=== PATIENT | female | born 1990 | race Caucasian/White ===

== ENCOUNTER 2021-05-30 13:57 | Outpatient (REF) | payer MEDICAID, SELFPAY ==
--- NOTE | ~2021-05-30 | XR_ITS ---
EXAMINATION: XR LUMBOSACRAL SPINE CLINICAL INFORMATION: Back pain with left-sided sciatica. COMPARISON: Lumbar spine radiographs dated 07/07/2017. TECHNIQUE: 3 views of the lumbosacral spine. FINDINGS: The vertebral bodies and posterior elements are normal. The disc spaces are preserved and the vertebral alignment is normal. The paraspinal soft tissues are normal. XR/XR lumbar spine 2-3V IMPRESSION: Unremarkable examination.
== END 2021-05-30 13:58 | disposition home or self-care (01) ==
LOC: HO.XRAY 13:57
PROVIDERS: Visit Provider Emergency Medicine
DX: M54.42 Lumbago with sciatica, left side (principal)
CPT/HCPCS: 72100

== ENCOUNTER 2023-03-03 12:45 | Outpatient (REF) | payer MEDICAID, SELFPAY ==
--- NOTE | ~2023-03-03 | US_ITS ---
EXAMINATION: MM DIAGNOSTIC DIGITAL BREAST TOMOSYNTHESIS, BILATERAL US DIAGNOSTIC ULTRASOUND BREAST, BILATERAL CLINICAL INFORMATION: 32-year-old with intermittent waxing and waning lateral breast pain. No palpable mass or discharge. Patient history of probable benign nodule left breast on outside ultrasound performed in [facility], currently unavailable. The lifetime risk of breast cancer based on the Tyrer-Cuzick Model is 8%. COMPARISON: None. TECHNIQUE: Digital breast tomosynthesis is performed in both the craniocaudal and mediolateral oblique views along with computer-aided detection (CAD). Synthesized 2D images are generated from the tomosynthesis. Ultrasound bilateral breasts is targeted to the areas of clinical concern outer breasts using grayscale imaging and color Doppler without and with harmonics. FINDINGS: There are scattered areas of fibroglandular density (ACR BI-RADS breast composition Category b). Breast tissue composition borders on heterogeneously dense. There is a small nodular asymmetry lower mid left breast on MLO view corresponding to the ultrasound finding below. Otherwise, there is no significant mass and no architectural abnormality or abnormal calcifications. The axilla are unremarkable. The skin contours are smooth. No skin thickening or coarsening of the Scott's ligaments. Ultrasound left breast demonstrates a macrolobulated circumscribed solid hypoechoic mass 8:00 position 3-4 cm from nipple measuring approximately 1.5 x 0.7 x 1.0 cm. No increased or decreased through transmission of sound. There is no other cystic or solid mass. No architectural abnormality. No skin thickening or edema tracking in soft tissue planes. Ultrasound right breast demonstrates a oval hypoechoic solid mass 6:00 position 3 cm from nipple measuring approximately 0.7 x 0.4 x 0.5 cm. There is no other cystic or solid mass. No architectural abnormality. No skin thickening or edema tracking in soft tissue planes. Results are discussed with the patient at time of visit. There are no inflammatory changes on mammography or ultrasound. The bilateral ultrasound nodules are likely benign fibroadenomas. Recommend follow-up surveillance. US/US breast RT limited IMPRESSION: -No mammographic evidence of malignancy or inflammatory changes. -Probable benign fibroadenoma left breast 1.5 cm, 8:00 position, 3-4 cm from nipple. -Probable benign fibroadenoma right breast 0.7 cm, 6:00 position, 3 cm from nipple. ASSESSMENT: BI-RADS 3: Probably Benign RECOMMENDATION: Bilateral targeted breast ultrasound in 6 months. This patient's information was entered into a reminder system with a target due date for their next mammogram.
--- NOTE | ~2023-03-03 | US_ITS ---
EXAMINATION: MM DIAGNOSTIC DIGITAL BREAST TOMOSYNTHESIS, BILATERAL US DIAGNOSTIC ULTRASOUND BREAST, BILATERAL CLINICAL INFORMATION: 32-year-old with intermittent waxing and waning lateral breast pain. No palpable mass or discharge. Patient history of probable benign nodule left breast on outside ultrasound performed in [facility], currently unavailable. The lifetime risk of breast cancer based on the Tyrer-Cuzick Model is 8%. COMPARISON: None. TECHNIQUE: Digital breast tomosynthesis is performed in both the craniocaudal and mediolateral oblique views along with computer-aided detection (CAD). Synthesized 2D images are generated from the tomosynthesis. Ultrasound bilateral breasts is targeted to the areas of clinical concern outer breasts using grayscale imaging and color Doppler without and with harmonics. FINDINGS: There are scattered areas of fibroglandular density (ACR BI-RADS breast composition Category b). Breast tissue composition borders on heterogeneously dense. There is a small nodular asymmetry lower mid left breast on MLO view corresponding to the ultrasound finding below. Otherwise, there is no significant mass and no architectural abnormality or abnormal calcifications. The axilla are unremarkable. The skin contours are smooth. No skin thickening or coarsening of the Scott's ligaments. Ultrasound left breast demonstrates a macrolobulated circumscribed solid hypoechoic mass 8:00 position 3-4 cm from nipple measuring approximately 1.5 x 0.7 x 1.0 cm. No increased or decreased through transmission of sound. There is no other cystic or solid mass. No architectural abnormality. No skin thickening or edema tracking in soft tissue planes. Ultrasound right breast demonstrates a oval hypoechoic solid mass 6:00 position 3 cm from nipple measuring approximately 0.7 x 0.4 x 0.5 cm. There is no other cystic or solid mass. No architectural abnormality. No skin thickening or edema tracking in soft tissue planes. Results are discussed with the patient at time of visit. There are no inflammatory changes on mammography or ultrasound. The bilateral ultrasound nodules are likely benign fibroadenomas. Recommend follow-up surveillance. US/US breast LT limited IMPRESSION: -No mammographic evidence of malignancy or inflammatory changes. -Probable benign fibroadenoma left breast 1.5 cm, 8:00 position, 3-4 cm from nipple. -Probable benign fibroadenoma right breast 0.7 cm, 6:00 position, 3 cm from nipple. ASSESSMENT: BI-RADS 3: Probably Benign RECOMMENDATION: Bilateral targeted breast ultrasound in 6 months. This patient's information was entered into a reminder system with a target due date for their next mammogram.
== END 2023-03-03 12:46 | disposition home or self-care (01) ==
LOC: HO.MAMMO 12:45
PROVIDERS: PCP Registered Nurse; Visit Provider Registered Nurse
DX: N64.4 Mastodynia (principal)
CPT/HCPCS: 76642; 77062; 77066

== ENCOUNTER 2023-09-01 12:52 | Outpatient (REF) | payer MEDICAID, SELFPAY ==
--- NOTE | ~2023-09-01 | US_ITS ---
EXAMINATION: US DIAGNOSTIC ULTRASOUND BREAST, BILATERAL CLINICAL INFORMATION: 32-year-old with intermittent waxing and waning lateral breast pain. No palpable mass or discharge. Patient history of probable benign nodule left breast on outside ultrasound performed in [facility], currently unavailable. COMPARISON: 10/03/2022. TECHNIQUE: Ultrasound bilateral breasts is targeted to the areas of clinical concern outer breasts using grayscale imaging and color Doppler without and with harmonics. FINDINGS: Ultrasound LEFT breast demonstrates a macrolobulated circumscribed solid hypoechoic mass 8:00 position 3-4 cm from nipple measuring approximately 1.9 x 0.9 x 0.9 cm (previously 1.5 x 0.7 x 1.0 cm, with differences felt to represent technique differences) It is stable in morphology and size. There appears to be subtle increased through transmission although masses. These are most likely fibroadenomas. No cystic findings. No edema within the soft tissue planes. No abnormal masslike shadowing. Ultrasound RIGHT breast demonstrates a oval hypoechoic solid mass 6:00 position 3 cm from nipple measuring a stable 0.7 x 0.4 x 0.5 cm. It is stable in morphology and size. There is no other cystic or solid mass. No edema within the soft tissue planes.. No abnormal masslike shadowing. The bilateral ultrasound nodules are likely benign fibroadenomas. Recommend follow-up surveillance. US/US breast BI limited mamm only IMPRESSION: -No significant sonographic changes since prior examination. -Probable benign fibroadenoma left breast 1.5 cm, 8:00 position, 3-4 cm from nipple. -Probable benign fibroadenoma right breast 0.7 cm, 6:00 position, 3 cm from nipple. ASSESSMENT: BI-RADS 3: Probably Benign RECOMMENDATION: Bilateral follow-up targeted breast ultrasound in 6 months. This patient's information was entered into a reminder system with a target due date for their next mammogram.
== END 2023-09-01 12:53 | disposition home or self-care (01) ==
LOC: HO.MAMMO 12:52
PROVIDERS: PCP Registered Nurse; Visit Provider Registered Nurse
DX: N64.4 Mastodynia (principal); N63.24 Unspecified lump in the left breast, lower inner quadrant; N63.15 Unspecified lump in the right breast, overlapping quadrants
CPT/HCPCS: 76642

== ENCOUNTER → 2023-09-01 13:00 | Outpatient (BNV) | payer MEDICAID, SELFPAY | PROVIDERS: PCP Registered Nurse; Visit Provider Radiology Diagnostic Radiology | DX: N64.4 Mastodynia (principal) | CPT/HCPCS: 76642 ==

== ENCOUNTER 2023-09-03 09:15 | Outpatient (REF) | payer MEDICAID, SELFPAY ==
[2023-09-03 12:22] LABS: HCG Quantitative 2052 mIU/mL
== END 2023-09-03 09:16 | disposition home or self-care (01) ==
LOC: HO.HHCL 09:15
PROVIDERS: Visit Provider Registered Nurse
DX: N92.6 Irregular menstruation, unspecified (principal)
CPT/HCPCS: 36415; 84702

== ENCOUNTER 2023-09-22 14:29 | Outpatient (REF) | payer MEDICAID, SELFPAY ==
--- NOTE | ~2023-09-22 | US_ITS ---
EXAMINATION: ULTRASOUND EXTREMITY NONVASCULAR CLINICAL INFORMATION: Mass right thigh. Multiple palpable areas in the anterior right thigh. COMPARISON: None available. TECHNIQUE: Multiple nodules are palpated in the anterior right thigh. The 4 largest were measured. FINDINGS: 4 well-defined avascular superficial slightly echogenic masses were demonstrated. This included: anterior mid thigh 2.8 x 0.6 x 2.5 cm Anterior mid thigh 1.4 x 0.5 x 1.3 cm Anterior lateral upper thigh 2.1 x 0.8 x 2.5 cm Anterior mid 1.6 x 0.5 x 1.3 cm These are similar in appearance and most likely represent lipomas. US/US extremity nonvascular IMPRESSION: 4 well-defined avascular slightly echogenic masses in the anterior mid thigh, as described above. These are similar in appearance and most likely represent lipomas.
== END 2023-09-22 14:30 | disposition home or self-care (01) ==
LOC: HO.US 14:29
PROVIDERS: PCP Registered Nurse; Visit Provider Registered Nurse
DX: R22.41 Localized swelling, mass and lump, right lower limb (principal)
CPT/HCPCS: 76882

== ENCOUNTER 2023-10-20 10:18 | Outpatient (AMB) | payer MEDICAID, SELFPAY ==
--- NOTE | 2023-10-20 10:39 | A.OFFVIS_ITS ---
Intake Vital Signs 3 10/20/23 10:45 Height 5 ft 4 in Weight 143 lb 11.862 oz BMI 24.7 BP 110/70 Blood Pressure Location Lt brachial Position Sitting Intake Visit Reasons: Mass of skin Rt Lower Extremity Intake Note: Patient is seen in office for evaluation and treatment of a mass on the right lower extremity. Pt c/o: has 3 lumps on the right thigh, and 2 on the left, onset for yrs, feels a pinch that radiates up the thigh, denies redness, discharge, swelling US:09/22/23 Communications Strategist Required: No Accompanied by: Self / Same As Patient Allergies No Known Allergies [No Known Allergies*] Allergy (Unverified 10/20/23 10:41) Medication List - Last Reconciled 10/20/23 by Rafal Arndt MD No Known Home Meds Patient : Yes (12 wks) HPI HPI Comments 2 History of Present Illness0 Details 32-year-old female patient presenting wi th several soft tissue masses located in her leg. She is currently 12 weeks with her 3rd child. She noted the lumps several years ago but feels that they are increasing in size. She has some discomfort associated with the lumps especially the anterior right thigh. She was evaluated with ultrasound which revealed a soft tissue density suggestive of lipomas. She is requested excision of the 3 lesions located in her right thigh. [facility] Family History Maternal Grandmother Leukemia Social History Alcohol intake: never Patient Tobacco Use Status: Never used Tobacco Review of Systems Const All systems reviewed & are unremarkable except as noted in HPI and below Denies chills, Denies fever(s), Denies headache(s), Denies poor appetite and Denies weakness ENT Denies headache(s) Card Denies chest pain, Denies irregular heart rhythm, Denies palpitations and Denies dyspnea Resp Denies cough, Denies excessive phlegm production and Denies dyspnea GI Denies abdominal pain, Denies bloating, Denies change in bowel habits, Denies constipation, Denies heartburn, Denies diarrhea, Denies nausea and Denies vomiting Denies urinary frequency Musc Denies back pain, Denies muscle weakness and Denies numbness Skin/Breast Denies changing lesions and Denies unusual bruising Neuro Denies headache(s), Denies numbness, Denies paresthesias and Denies weakness Psych Denies anxiety and Denies depression Endo Denies palpitations Sabas/Lymph Denies lymphadenopathy Physical Exam Const General: cooperative and no acute distress Nutritional Appearance: well nourished Orientation/consciousness: patient oriented x3 Limitations: no limitations HEENT Head: Yes normocephalic and Yes atraumatic Ears: hearing grossly normal bilaterally Resp Effort & Inspection: normal respiratory effort, no audible wheezes, no cough and no respiratory distress Cardio Jugular venous distension: no JVD GI Inspection: Yes normal to inspection Skin Other: Warm, dry, no rash Neuro General: patient oriented x3 Extrem General: Yes no clubbing, cyanosis or edema Upper/lower leg/hip images: 2 1. Right anterior thigh, 2 cm 2. Right medial thigh, 2 cm 3. Right lateral thigh, 1.5 cm 4. Left lateral thigh/groin, 1 cm Assessment & Plan Assessment & Plan (1) Lipoma of right lower extremity: Code(s): D17.23 - Benign lipomatous neoplasm of skin and subcutaneous tissue of right leg Plan 32-year-old female patient currently 12 weeks presenting with enlarging lipomas which are causing discomfort. She is requested excision of the 3 lesions located on her right thigh. She understands that there will be a scar following the procedure. After discussion of the procedure, risks, and alternatives, she consents to excision of the right thigh lipomas. This will be performed as a minor surgery under local anesthesia. Coding Level of Care Code New Pt Level 4 (14725) Diagnoses Lipoma of right lower extremity D17.23
[2023-10-20 10:45] VITALS: BP 110/70; BMI 24.7
== END 2023-10-20 11:04 | disposition home or self-care (01) ==
PROVIDERS: PCP Registered Nurse; Referring Provider Registered Nurse; Visit Provider Surgery
DX: D17.23 Benign lipomatous neoplasm of skin and subcutaneous tissue of right leg (principal)
CPT/HCPCS: 99204

== ENCOUNTER → 2023-10-20 10:18 | Outpatient (BNVA) | payer MEDICAID, SELFPAY | PROVIDERS: PCP Registered Nurse; Referring Provider Registered Nurse; Visit Provider Surgery | DX: D17.23 Benign lipomatous neoplasm of skin and subcutaneous tissue of right leg (principal) | CPT/HCPCS: 99202 ==

== ENCOUNTER 2023-11-19 11:00 | Outpatient (REF) | payer MEDICAID, SELFPAY ==
[2023-11-19 12:41] VITALS: BP 104/66; PULSE 77; RESP 18; TEMP 36.3; O2SAT 100; BMI 24.4
--- NOTE | 2023-11-19 15:48 | W.PM.OPN ---
Operative Note Operative Note Date of Service: 11/19/23 Narrative: Preoperative diagnosis: Lipoma x3 right anterior thigh Postoperative diagnosis: Same Procedure: Excision of lipoma x3 right anterior thigh Surgeon: Rafal Arndt MD [employer] Worker: None Anesthesia: Lidocaine 1% with epinephrine Indications for procedure: 32-year-old female presenting with 3 lipomas of the anterior right thigh which are causing discomfort. All 3 are located in the anterior thigh and measure 2 cm, 2 cm, and 1.5 cm diameter. Operative findings: 3 anterior right thigh lipomas as noted above and as described in the H and P. Specimen: Lipoma x3 Estimated blood loss: Less than 2 mL Complications: None Procedure details: Patient was brought to the OR and placed in a supine position. The 3 lipomas were marked by the patient in the anterior right thigh including 1 in the upper right thigh a 2nd slightly lower in the midline and a 3rd located slightly medial to the initial 2. After assuring informed consent the skin was prepped with Betadine and draped in a sterile fashion. Local anesthesia was infiltrated over each of the 3 lipomas. Beginning in the superior lesion incision was made in a longitudinal fashion of approximately 1.5 cm. This was carried out through subcutaneous tissue down to the lipoma. Blunt dissection was then used to dissect the lipoma which easily was removed. Attention was then directed to the lower, larger lesion measuring approximately 2 cm in diameter. Incision was made over the lesion and carried out through subcutaneous tissue up to the lipoma. Blunt dissection was then used to remove this lipoma. Attention was then directed to the 3rd lesion which was slightly medial to the other 2 lesions. Again an incision was made directly over the lesion and blunt dissection used to remove this lipoma as well. Pressure was held to maintain hemostasis in all lesions. Skin was then closed in all incisions using interrupted 4-0 subcuticular Polysorb sutures. Steri-Strips, 2 x 2 gauze and Tegaderm were then applied. The patient tolerated the procedure well. She was discharged to home in stable condition.
== END 2023-11-19 11:01 | disposition home or self-care (01) ==
LOC: HO.SSS 11:00
PROVIDERS: PCP Registered Nurse; Visit Provider Surgery
PROC: (CPT 27327; principal; 2023-11-19 11:30)
DX: D17.23 Benign lipomatous neoplasm of skin and subcutaneous tissue of right leg (principal)
CPT/HCPCS: 27327 ×3; 88304

== ENCOUNTER → 2023-11-19 11:00 | Outpatient (BNV) | payer MEDICAID, SELFPAY | PROVIDERS: PCP Registered Nurse; Visit Provider Surgery | DX: D17.23 Benign lipomatous neoplasm of skin and subcutaneous tissue of right leg (principal) | CPT/HCPCS: 27327 ==

== ENCOUNTER 2023-12-01 12:46 | Outpatient (AMB) | payer MEDICAID, SELFPAY ==
[2023-12-01 13:19] VITALS: BP 102/61; PULSE 84; BMI 24.2
--- NOTE | 2023-12-01 13:19 | A.OFFVIS_ITS ---
Intake Vital Signs 12/01/23 13:19 Height 5 ft 4 in Weight 141 lb BMI 24.2 BP 102/61 Blood Pressure Location Lt brachial Position Sitting Pulse 84 Intake Visit Reasons: S/P excision lipoma Rt leg x3 Intake Note: Patient is seen in office for post op assessment post excision of lipoma x3 right anterior thigh. Pt c/o: denies any concerns, healing as expected Op:11/19/23 Office Machine Service Supervisor Required: No Accompanied by: Self / Same As Patient Allergies No Known Allergies [No Known Allergies*] Allergy (Unverified 12/01/23 13:21) HPI HPI Comments History of Present Illness Details Patient returns 1 week following excision of multiple lipomas of the leg. She tolerated the procedure well and feels the wounds are healing nicely. Pathology confirmed angio lipomas. [facility] Surgical History S/P excision of lipoma (11/19/23) Family History Maternal Grandmother Leukemia Social History Alcohol intake: never Patient Tobacco Use Status: Never used Tobacco Physical Exam Vital Signs: Last Vital Signs Pulse 84 12/01/23 13:19 BP 102/61 12/01/23 13:19 BMI result Body Mass Index 24.2 Const General: no acute distress Extrem Other: Wounds are clean, dry, and intact without redness or discharge. Assessment & Plan Assessment & Plan (1) Lipoma of right lower extremity: Code(s): D17.23 - Benign lipomatous neoplasm of skin and subcutaneous tissue of right leg Plan Patient returns 1 week following excision of lipomas of the right leg. She tolerated the procedure well and her wounds are healing nicely. She should follow up as needed. Coding Level of Care Code Global (51858) Diagnoses Lipoma of right lower extremity D17.23
== END 2023-12-01 13:24 | disposition home or self-care (01) ==
PROVIDERS: PCP Registered Nurse; Visit Provider Surgery
DX: D17.23 Benign lipomatous neoplasm of skin and subcutaneous tissue of right leg (principal)
CPT/HCPCS: 99024

== ENCOUNTER → 2023-12-01 12:46 | Outpatient (BNVA) | payer MEDICAID, SELFPAY | PROVIDERS: PCP Registered Nurse; Visit Provider Surgery | DX: D17.23 Benign lipomatous neoplasm of skin and subcutaneous tissue of right leg (principal) | CPT/HCPCS: 99212 ==

== ENCOUNTER 2024-05-24 10:55 | Outpatient (REF) | payer MEDICAID, SELFPAY ==
--- NOTE | ~2024-05-24 | US_ITS ---
EXAMINATION: US DIAGNOSTIC ULTRASOUND BREAST, BILATERAL CLINICAL INFORMATION: 6 month follow-up for probably benign bilateral breast masses; left breast 8:00, 3 cm from the nipple, right breast 6:00 axis, 3 cm from the nipple. Patient is currently breast-feeding and is one month , complicating the examination and appearance of the breast tissue. COMPARISON: Bilateral breast ultrasound 09/01/2023, 03/03/2023 (BI-RADS 3). Bilateral diagnostic mammogram 03/03/2023. TECHNIQUE: Ultrasound of bilateral breasts is performed with real-time king scale imaging and color Doppler. Attention was given to the right breast 6:00 axis, and left breast 8:00 axis, to include the areas of concern. FINDINGS: RIGHT BREAST: The previously seen small mass in the 6:00 axis, 3 cm from the nipple cannot be visualized on today's exam, most likely due to engorgement of the breast tissue from breast-feeding and extensive tissue shadowing. This should be considered essentially nondiagnostic. Six-month follow-up recommended for improved visualization. LEFT BREAST: Slightly smaller macrolobulated circumscribed solid hypoechoic mass 8:00 position 3-4 cm from nipple measuring approximately 1.8 x 0.9 x 0.6 cm (previously 1.9 x 0.9 x 0.9 cm, when measured similarly). There appears to be subtle increased through transmission through the mass this remains most likely a fibroadenoma. No cystic findings. No edema within the soft tissue planes. Diffuse soft tissue shadowing from breast-feeding mildly complicates evaluation. US/US breast BI limited mamm only IMPRESSION: 1. Slightly smaller LEFT breast mass at the 8 o'clock position with unchanged characteristics highly suggestive of a fibroadenoma. This is almost certainly benign. Six-month follow-up recommended to establish a one-year stability. 2. Previously seen small mass in the RIGHT breast at 6:00 is not well-seen on today's examination, most likely due to engorgement of the breast tissue from breast-feeding and extensive tissue shadowing. Recommend six-month follow-up in an attempt to visualize this probably benign finding. ASSESSMENT: BI-RADS 3: Probably Benign RECOMMENDATION: Diagnostic bilateral ultrasonography in 6 months. This patient's information was entered into a reminder system with a target due date for their next mammogram. Electronically signed by: Bennett Ku MD 05/24/2024 12:53 PM EDT
== END 2024-05-24 10:56 | disposition home or self-care (01) ==
LOC: HO.MAMMO 10:55
PROVIDERS: PCP Registered Nurse; Visit Provider Registered Nurse
DX: N63.24 Unspecified lump in the left breast, lower inner quadrant (principal); N63.15 Unspecified lump in the right breast, overlapping quadrants
CPT/HCPCS: 76642

== ENCOUNTER → 2024-05-24 11:00 | Outpatient (BNV) | payer MEDICAID, SELFPAY | PROVIDERS: PCP Registered Nurse; Visit Provider Radiology Diagnostic Radiology | DX: D24.1 Benign neoplasm of right breast (principal); D24.2 Benign neoplasm of left breast | CPT/HCPCS: 76641 ==

== ENCOUNTER 2024-12-13 10:46 | Outpatient (REF) | payer MEDICAID, SELFPAY ==
--- NOTE | ~2024-12-13 | US_ITS ---
EXAMINATION: US DIAGNOSTIC ULTRASOUND BREAST, BILATERAL CLINICAL INFORMATION: Follow-up for bilateral masses versus complicated cysts likely at 6:00 left at 8:00. Patient is breast-feeding.. COMPARISON: Comparison is made with relevant prior imaging. TECHNIQUE: Ultrasound of the breast is performed with real-time king scale imaging and color Doppler. FINDINGS: Targeted color Doppler ultrasound scanning in the right breast from 40 8:00 demonstrates normal fibronodular breast tissue. The previously seen masses no longer seen. Targeted color Doppler ultrasound scanning in the left breast at 8:00 demonstrates a hypoechoic area which could recommend present a normal patch of fibroglandular breast tissue versus the previously seen solid mass versus complicated cyst. There is no internal vascular flow. Follow-up is recommended for confirmation. Results are discussed with the patient at time of visit. US/US breast BI limited mamm only IMPRESSION: Right: Negative. Left: Patch of normal fibronodular breast tissue versus previously seen area of solid mass versus complicated cyst which is more ill-defined today. There is no internal vascular flow. Recommend follow-up in 12 months for further confirmation. ASSESSMENT: BI-RADS 3: Probably Benign RECOMMENDATION: Diagnostic mammography at time of next annual exam, due in 12 months. This patient's information was entered into a reminder system with a target due date for their next mammogram. Electronically signed by: Ida Craig DO 12/13/2024 02:11 PM EDT
--- OUTSIDE RECORDS SUMMARY | 2024-12-13 12:53 | XMS_ITS | Encounter Summary ---
Author Organization [employer] Address [address] [place] [address] Care Team Providers Care Registered Occupational Therapist Name Role Phone Lisa Perez Primary Care Provider [phone] Encounter Details Date Type Department Care Team (Latest Contact Info) Description 07/22/2021 Abstract [facility] CONVERSIONS Dental, Provider, DDS Social History Tobacco Use Types Packs/Day Years Used Date Smoking Tobacco: Never Assessed Comments Unknown Sex and Gender Information Value Date Recorded Sex Assigned at Female 07/14/2022 10:32 AM EDT Legal Sex Female 10:32 AM EDT Gender Identity Female 07/14/2022 10:32 AM EDT Sexual Orientation Straight 07/14/2022 10 :32 AM EDT documented as of this encounter Plan of Treatment Not on file documented as of this encounter Visit Diagnoses Not on filedocumented in this encounter Care Teams Registered Occupational Therapist Relationship Specialty Start Date End Date Lisa Perez FNP [address] [place] [id number] PCP - General Family Medicine 05/13/22 documented as of this encounter
--- OUTSIDE RECORDS SUMMARY | 2024-12-13 12:53 | XMS_ITS | Encounter Summary ---
Author Organization [employer] Address [address] [place] [address] Care Team Providers Care Heart Surgeon Name Role Phone Lisa Perez Primary Care Provider [phone] Encounter Details Date Type Department Care Team (Latest Contact Info) Description 07/05/2019 Abstract [facility] CONVERSIONS Dental, Provider, DDS Social History Tobacco [...] on filedocumented in this encounter Care Teams Heart Surgeon Relationship Specialty Start Date End Date Lisa Perez FNP [address] [place] [id number] PCP - General Family Medicine 05/13/22 documented as of this encounter
--- OUTSIDE RECORDS SUMMARY | 2024-12-13 12:53 | XMS_ITS | Encounter Summary ---
Author Organization [employer] Address [address] [place] [address] Care Team Providers Care Engineering Aid Name Role Phone Chris Lisa ORQUIDEA Primary Care Provider [phone] Encounter Details Date Type Department Care Team ([facility] st Contact Info) Description 2024 Orders Only [facility] [address] [place] [address] ProviderDenia MD Social History Tobacco Use Types Packs/Day Years Used Date Smoking Tobacco: Former Cigarettes Passive Smoke Exposure: Current Smokeless Tobacco: Never Alcohol Use Standard Drinks/Week Comments Not Currently 2 (1 standard drink = 0.6 oz pur e alcohol) Depression Answer Date Recorded Patient Health Questionnaire-9 Score 1 06/06/2024 Patient Health Questionnaire-9 Score 1 06/06/2024 Last PHQ-9: Questionnaire Data Not on file 0 06/06/2024 Housing Stability Answer Date Recorded What is your housing situation today? I have misael fowler 06/06/[address] you li ve. Do you have problems with any of the following? None of the above 06/06/2024 Food Insecurity Answer Date Recorded Within the past 12 months, y ou worried that your food would run out before you got money to buy more: Never True 06/06/2024 Within the past 12 months,th e food you bought just didn't last and you didn't have enough money to get more: Never True Transportation Answer Date Recorded In the past 12 months, has l ack of transportation kept you from medical appts, meetings, work or from getting things needed for daily living? No 06/06/2024 Utilities Answer Date Recorded In the past 12 months, has t he electric, gas, oil or water company threatened to shut off services in your home? No 06/06/2024 Depression Answer Date Recorded Patient Health Questionnaire-2 Score 0 06/06/2024 Internet Access Answer Date Recorded Internet Access Q1 Yes 06/06/2024 Internet Access Q2 Not on file 06/06/2024 Comments Unknown Sex and Gender Information Value Date Recorded Sex Assigned at Female 07/14/2022 10:32 AM EDT Legal Sex Female 10:32 AM EDT Gender Identity Female 07/14/2022 10:32 AM EDT Sexual Orientation Straight 07/14/2022 10 :32 AM EDT documented as of this encounter Plan of Treatment Not on file documented as of this encounter Procedures Procedure Name Priority Date/Time Associated Diagnosis Comments HM PAP/HPV Routine 06/10/2024 8:24 AM EDT documented in this encounter Results * HM PAP/HPV (06/10/2024 8:24 AM EDT) us Historical Provider HEALTH MAINTENANCE Final Result documented in this encounter Visit Diagnoses Not on filedocumented in this encounter Additional Health Concerns Assessment Noted Time PHQ-9 Depression Total Score: 1 06/06/20 24 11:46 AM EDT documented as of this encounter Care Teams Engineering Aid Relationship Specialty Start Date End Date Lisa Perez FNP [address] [place] [address] PCP - General Family Medicine 05/13/22 documented as of this encounter
--- OUTSIDE RECORDS SUMMARY | 2024-12-13 12:53 | XMS_ITS | Clinical Summary ---
Author Organization [employer] Address [address] [place] [address] Care Team Providers Care Vp Construction Name Role Phone LadiLisa burger ORQUIDEA Primary Care Provider [phone] Allergies Active Allergy Reactions Criticality Noted Date Comments Lactose Other Low 04/24/2024 Other Reaction(s): Cramps Medications butalbital-acet aminophen-caffe ine 50-325-40 MG tablet Take 1 tablet by mouth every 4 (four) hours if needed for migraine. 4 Active Ferrous Sulfate (IRON PO) Take 1 tablet by mouth in the morning. 4 Active Ekkjksvc-Sel-Lh -FA ( 1 + IRON PO) Take by mouth. Acti ve Lidoderm 5 % patchIndication s:Acute bilateral low back pain with bilateral sciatica APPLY 1 PATCH TOPICALLY TO SKIN, LEAVE ON FOR 12 HOURS AND OFF FOR 12 HOURS DIRECTED 30 patch 1 4 Active Active Problems Problem Noted Date Diagnosed Date Healthcare maintenance 06/06/2024 Overview (06/06/2024): Pap: 10/09/23 ASCUS, HPV Pos. Colpo benign Oct 2023. Mammo: diagnostic US 05/24/24 BIRADS 3. Rec 6 month f/up. Assessment & Plan (06/06/2024 8:50 PM EDT): Doing well , good support from and family. PHQ9 score 1. Negative screen. Declined flu vaccine Follow up in 6-12 months for routine Physical Exam, sooner as needed ASCUS with positive high risk HPV cervical 10/16 Overview (06/06/2024): Pap 10/09/23 (during ) - ASCUS, HPV positive 11/12/23 benign appearing colpo Plan: repeat pap (following with [facility]) Migraines 10/06/2023 Overview (11/09/2023): Takes tylenol. Reports light sensitivity. MCDERMOTT increasingly bothersome (lasting multiple days), no improvement with Tylenol. Rx for Fioricet given through OBGYN. Lumbago with sciatica, left side 02/20/2023 Assessment & Plan (10/23/2024 8:12 PM EST): Pt w chronic lumbalgia with left sciatica. Cont with APAP and non-pharm measures as needed Letter of accomodation completed for return to work transition after maternity leave Assessment & Plan (11/09/2023 4:52 PM EST): Pt w chronic lumbalgia with left sciatica, current flare during . Cont with APAP and non-pharm measures as needed Letter of accomodation completed for work Assessment & Plan (02/20/2023 9:10 PM EDT): Pt w chronic lumbalgia with left sciatica Acute on chronic Reports improved from yesterday ,no acute alarming symptoms Noted 4/5 decrease strength in left leg -unsure if from acute pain ? -advised to continue lidoderm patch -tylenol prn x mild pain and NSAIDS x mod pain -has at home -rest at home -does not have to go back to work x next 3 days -pt has apt scheduled w PCP next week ---advised to f back pain then -referred to PT today -if ongoing back pain and weakness despite PT and meds x pain will need to consider MRI of lower back -pt states weakness in leg is chronic Resolved Problems Problem Noted Date Diagnosed Date Resolved Date Acute bilateral low back carlos eduardo n with bilateral sciatica 12/29/2023 06/06/2024 Assessment & Plan (12/29/2023 4:41 PM EDT): Apply heat on affected area Lidocaine patches prescribed today Acetaminophen PRN Work letter provided If symptoms persist or worse go to emergency room patient educated about red flags Dental caries on smooth surf chauncey limited to enamel 11/30/2023 06/06/2024 Dental plaque 06/16/2023 06/06/2024 Tipped teeth 06/16/2023 06/06/2024 Dental caries 06/16/2023 06/06/2024 Encounters Date Type Department Care Team Description 2024 Orders Only [facility] [address] [place] [address] Provider, MD Denia 10/21/2024 11:15 AM EST Office Visit [facility] [address] [place] [address] Lisa Perez FNP Chronic left-sided low back pain with left-sided sciatica (Primary Dx); state; Healthcare maintenance 10/21/2024 Travel 10/10/2024 Telephone [facility] [address] [place] [address] Lisa Perez FNP Return to Work Form from Last 3 Months Immunizations Name Administration Dates Next Due Tdap 03/14/2024,01/27/2022 Family History Medical History Relation Name Comments Leukemia Maternal Grandmother Hypertension Mother Nani Ovarian cancer Mother's Sister Heart disease Sister Yael Relation Name Status Comments Maternal Grandmother Mother Nani Mother's Sister Sister Yael Social History Tobacco Use Types Packs/Day Years Used Date Smoking Tobacco: Former Cigarettes Passive Smoke Exposure: Current Smokeless Tobacco: Never Tobacco Cessation:Counseling Given: Not Answered Alcohol Use Standard Drinks/Week Comments Not Currently [...] Orientation Straight 07/14/2022 10 :32 AM EDT Last Filed Vital Signs Vital Sign Reading Time Taken Comments Blood Pressure 106/71 10/21/2024 11:26 AM EST Pulse 74 10/21/2024 11:26 AM EST Temperature 36.1 ??C (97 ??F) 10/21/2024 11:26 AM EST Respiratory Rate 18 10/21/2024 11:26 AM EST Oxygen Saturation 98% 10/21/2024 11:26 AM EST Inhaled Oxygen Concentration - - Weight 58.1 kg (128 lb 2 oz) 10/21/2024 11:26 AM EST Height 164.5 cm (5' 4.75 ) 10/21/2024 11:[address] Body Mass Index 21.49 10/21/2024 11:26 AM EST Plan of Treatment Health Maintenance Due Date Last Done Comments Alcohol/Substance Use Screening 2000 Family Planning (PISQ) 12/09/2003 Hepatitis B Vaccines (1 of 3 - 19+ 3-dose series) 12/09/2007 Dental Oral Exam 12/17/2023 06/16/2023, 04/2021, 05/27/2017 Dental Prophylaxis 12/17/2023 06/16/2023, 1 09/21/2020, 02/03/2018, Additional history exists Dental X-Ray: Bitewings 06/17/2024 06/16/20 23, 07/22/2021, 05/27/2017 Diagnostic Breast Imaging 11/21/20242023, 09/01/2023, 03/03/2023, Additional history exists Mammogram 11/21/2024 05/24/2024, 08/14, 03/03/2023, Additional history exists Influenza Vaccine (#1) 2025 Postp oned from 05/15/2024 (Patient Refused) Depression Screening 06/06/2025 06/06/2024, 06/06/20 24 SDOH Screening 06/06/2025 06/06/2024 Tobacco Screening 06/06/2025 06/06/2024 COVID-19 Vaccine ( season) 2025 08/25/2021, 01/08/2021, 12/18/2020 Postponed from 05/15/2024 (Patient Refused) Dental X-Ray: Full Mouth 06/17/2026 023, 09/24/2017, 05/27/2017 Cervical Cancer Screening 06/10/2027 HPV/Cotest 06/10/2027 10/09/2023 Pap Smear 06/10/2027 06/10/2024, 10/09/2023 DTaP/Tdap/Td Vaccines (3 - Td or Tdap) 03/14/2034 03/14/2024, 01/27/2022 Zoster Vaccines (1 of 2) 2038 RSV Patients and Patients Aged 60 years or older (1 - 1-dose 75+ series) 12/09/2063 HIV Screening Completed 01/16/2022 Hepatitis C Screening Completed 01/16/2022 HIB Vaccines Aged Out No longer eligi ble based on patient's age to complete this topic HPV Vaccines Aged Out No longer eligi ble based on patient's age to complete this topic Hepatitis A Vaccines Aged Out No long er eligible based on patient's age to complete this topic IPV Vaccines Aged Out No longer eligi ble based on patient's age to complete this topic Meningococcal Vaccine Aged Out No candy faraz eligible based on patient's age to complete this topic Pneumococcal Vaccine: Pediatrics (0 to 5 Years) and At-Risk Patients (6 to 49) Years) Aged Out No longer eligible based on patient's age to complete this topic RSV under 20 months Aged Out No longe r eligible based on patient's age to complete this topic Rotavirus Vaccines Aged Out No longer eligible based on patient's age to complete this topic Procedures Procedure Name Priority Date/Time Associated Diagnosis Comments HM PAP/HPV Routine 06/10/2024 8:24 AM EDT BI US BREAST LIMITED BILATERAL Routine 05/24/2024 11:00 AM EDT HM PAP/HPV Routine 10/09/2023 PROPHYLAXIS - ADULT Routine 06/16/2023 8 :00 AM EDT Dental plaque Dental caries INTRAORAL - COMPLETE SERIES OF RADIOGRAPHIC IMAGES Routine 06/16/2023 8:00 AM EDT Dental plaque Tipped teeth Dental caries PERIODIC ORAL EVALUATION - ESTABLISHED PATIENT Routine 06/16/2023 8:00 AM EDT ZZZ HISTORICAL HEPATITIS C AB W/REFL TO HCV RNA, QN, PCR Routine 01/16/2022 9:46 AM EDT HIV 1/2 ANTIGEN/ANTIBODY, FOURTH GENERATION W/RFL Routine 01/16/2022 9:46 AM EDT from Last 3 Months or Most Recently Relevant to Health Maintenance Results * HM PAP/HPV (06/10/2024 8:24 AM EDT) Only the most recent of2 resultswithin the time period is included. us Historical Provider MD HEALTH MAINTENANCE Final Result * BI US Breast Limited Bilateral (05/24/2024 11:00 AM EDT) Anatomical Region Laterality Modality Breast Bilateral Ultrasound 05/24/2024 11:0 0 AM EDT Narrative 05/24/2024 12:56 PM EDT ? [facility] ? [address] ?[place] [address] ? Ultrasound Report ? Signed ? Patient: Arroyo Cuaresma,Malorie ?MR#: M ?? [id number] ? : 1990 ?Acct:[id number] ? Age/Sex: 33 / F ?ADM Date: 05/24/24 ? Loc: HO.MAMMO ? Attending Dr: Lisa HEARD ? Ordering Physician: Lisa Perez ?? Date of Service: 05/24/24 ?? Procedure(s): US breast BI limited mamm only ?? Accession Number(s): [id number] ? cc: Lisa Perez ? EXAMINATION: ?? US DIAGNOSTIC ULTRASOUND BREAST, BILATERAL ? CLINICAL INFORMATION: ? 6 month follow-up for probably benign bilateral breast masses; left ?? breast 8:00, 3 cm from the nipple, right breast 6:00 axis, 3 cm from ?? the nipple. Patient is currently breast-feeding and is one month ?? , complicating the examination and appearance of the breast ?? tissue. ? COMPARISON: ?? Bilateral breast ultrasound 09/01/2023, 03/03/2023 (BI-RADS 3). ?? Bilateral diagnostic mammogram 03/03/2023. ? TECHNIQUE: ?? Ultrasound of bilateral breasts is performed with real-time king scale ?? imaging and color Doppler. Attention was given to the right breast 6:00 ?? axis, and left breast 8:00 axis, to include the areas of concern. ? FINDINGS: ? RIGHT BREAST: ?? The previously seen small mass in the 6:00 axis, 3 cm from the nipple ?? cannot be visualized on today's exam, most likely due to engorgement of ?? the breast tissue from breast-feeding and extensive tissue shadowing. ?? This should be considered essentially nondiagnostic. Six-month ?? follow-up recommended for improved visualization. ? LEFT BREAST: ?? Slightly smaller macrolobulated circumscribed solid hypoechoic mass ?? 8:00 position 3-4 cm from nipple measuring approximately 1.8 x 0.9 x ?? 0.6 cm (previously 1.9 x 0.9 x 0.9 cm, when measured similarly). There ?? appears to be subtle increased through transmission through the mass ?? this remains most likely a fibroadenoma. No cystic findings. No edema ?? within the soft tissue planes. Diffuse soft tissue shadowing from ?? breast-feeding mildly complicates evaluation. ? US/US breast BI limited mamm only ?? IMPRESSION: ? 1. Slightly smaller LEFT breast mass at the 8 o'clock position with ?? unchanged characteristics highly suggestive of a fibroadenoma. This is ?? almost certainly benign. Six-month follow-up recommended to establish a ?? one-year stability. ? 2. Previously seen small mass in the RIGHT breast at 6:00 is not ?? well-seen on today's examination, most likely due to engorgement of the ?? breast tissue from breast-feeding and extensive tissue shadowing. ?? Recommend six-month follow-up in an attempt to visualize this probably ?? benign finding. ? ASSESSMENT: ? BI-RADS 3: Probably Benign ? RECOMMENDATION: ?? Diagnostic bilateral ultrasonography in 6 months. ? This patient's information was entered into a reminder system with a ?? target due date for their next mammogram. ? Electronically signed by: ??Bennett Ku MD ??05/24/2024 12:53 PM EDT RP ? Dictated By: ?Bennett Ku MD ? Signed By: ?<Electronically signed by Bennett Ku MD in OV> ?05/24/24 1253 ? DD/ 1100 ? TD/TT: 05/24/24 1136 ? Header Machine Operator: ? Procedure Note Gay Velazquez - 05/24/2024 [facility] [address] [place] [address] Ultrasound Report Signed Patient: Dorene Mcgee#: M [id number] : 1990Acct:[id number] Age/Sex: 33 / FADM Date: 05/24/24 Loc: HORuthMAMMO Attending Dr: Lisa HEARD Ordering Physician: Lisa Perez Date of Service: 05/24/24 Procedure(s): US breast BI limited mamm only Accession Number(s): [id number] cc: Phalen,Lisa CONTROL SPECIALIST EXAMINATION: US DIAGNOSTIC ULTRASOUND BREAST, BILATERAL CLINICAL INFORMATION: 6 month follow-up for probably benign bilateral breast masses; left breast 8:00, 3 cm from the nipple, right breast 6:00 axis, 3 cm from the nipple. Patient is currently breast-feeding and is one month , complicating the examination and appearance of the breast tissue. COMPARISON: Bilateral breast ultrasound 09/01/2023, 03/03/2023 (BI-RADS 3). Bilateral diagnostic mammogram 03/03/2023. TECHNIQUE: Ultrasound of bilateral breasts is performed with real-time king scale imaging and color Doppler. Attention was given to the right breast 6:00 axis, and left breast 8:00 axis, to include the areas of concern. FINDINGS: RIGHT BREAST: The previously seen small mass in the 6:00 axis, 3 cm from the nipple cannot be visualized on today's exam, most likely due to engorgement of the breast tissue from breast-feeding and extensive tissue shadowing. This should be considered essentially nondiagnostic. Six-month follow-up recommended for improved visualization. LEFT BREAST: Slightly smaller macrolobulated circumscribed solid hypoechoic mass 8:00 position 3-4 cm from nipple measuring approximately 1.8 x 0.9 x 0.6 cm (previously 1.9 x 0.9 x 0.9 cm, when measured similarly). There appears to be subtle increased through transmission through the mass this remains most likely a fibroadenoma. No cystic findings. No edema within the soft tissue planes. Diffuse soft tissue shadowing from breast-feeding mildly complicates evaluation. US/US breast BI limited mamm only IMPRESSION: 1. Slightly smaller LEFT breast mass at the 8 o'clock position with unchanged characteristics highly suggestive of a fibroadenoma. This is almost certainly benign. Six-month follow-up recommended to establish a one-year stability. 2. Previously seen small mass in the RIGHT breast at 6:00 is not well-seen on today's examination, most likely due to engorgement of the breast tissue from breast-feeding and extensive tissue shadowing. Recommend six-month follow-up in an attempt to visualize this probably benign finding. ASSESSMENT: BI-RADS 3: Probably Benign RECOMMENDATION: Diagnostic bilateral ultrasonography in 6 months. This patient's information was entered into a reminder system with a target due date for their next mammogram. Electronically signed by: Bennett Ku MD 05/24/2024 12:53 PM EDT RP Dictated By: Bennett Ku MD Signed By: <Electronically signed by Bennett Ku MD in OV> 05/24/24 1253 DD/ 1100 TD/TT: 05/24/24 1136 Header Machine Operator: us Lisamadeline Perez CONTROL SPECIALIST IMG US PROCEDURES Final Result * HEPATITIS C AB W/REFL TO HCV RNA, QN, PCR (01/16/2022 9:46 AM EDT) HEPATITIS C ANTIBODY NON-REACT KATIA NON-REACT KATIA [facility] INDEX 0.02 <1.00 [facility] Comment: ?? HCV antibody was non-reactive. There is no laboratory ?? evidence of HCV infection. ?? In most cases, no further action is required. However, if recent HCV exposure is suspected, a test for HCV RNA (test code 34804) is suggested. ?? For additional information please refer to http://education.Kitenga/faq/LPS29p6 (This link is being provided for informational/ educational purposes only.) ?? 01/16/2022 9:46 AM EDT us Inez Gogo [facility] HISTORICAL/NON ORDERABLE LABS Final Result [facility] [address] * HIV 1/2 ANTIGEN/ANTIBODY,FOURTH GENERATION W/RFL (01/16/2022 9:46 AM EDT) HIV-1/2 ANTIGEN AND ANTIBODIES, 4TH GENERATION W/ REFLEX NON-REACT KATIA NON-REACT KATIA [facility] Comment: HIV-1 antigen and HIV-1/HIV-2 antibodies were not detected. There is no laboratory evidence of HIV infection. ?? PLEASE NOTE: This information has been disclosed to you from records whose confidentiality may be protected by state law. ??If your state requires such protection, then the state law prohibits you from making any further disclosure of the information without the specific written consent of the person to whom it pertains, or as otherwise permitted by law. A general authorization for the release of medical or other information is NOT sufficient for this purpose. ? For additional information please refer to http://education.Kitenga/faq/ZUB540 (This link is being provided for informational/ educational purposes only.) ? The performance of this assay has not been clinically validated in patients less than 2 years old. ?? 01/16/2022 9:46 AM EDT us Inez Bowens NP LAB BLOOD ORDERABLES Final Res ult [facility] [address] from Last 3 Months or Most Recently Relevant to Health Maintenance Insurance BS PPO D[facility]ICAID STAND [facility] Care Teams Vp Construction Relationship Specialty Start Date End Date Lisa Perez FNP [address] [place] [id number] PCP - General Family Medicine 05/13/22
== END 2024-12-13 10:47 | disposition home or self-care (01) ==
LOC: HO.MAMMO 10:46
PROVIDERS: PCP Registered Nurse; Visit Provider Registered Nurse
DX: N63.15 Unspecified lump in the right breast, overlapping quadrants (principal); N63.23 Unspecified lump in the left breast, lower outer quadrant; Z39.1 Encounter for care and examination of lactating mother
CPT/HCPCS: 76642

== ENCOUNTER → 2024-12-13 11:00 | Outpatient (BNV) | payer MEDICAID, SELFPAY | PROVIDERS: PCP Registered Nurse; Visit Provider Internal Medicine | DX: N63.20 Unspecified lump in the left breast, unspecified quadrant (principal); N63.10 Unspecified lump in the right breast, unspecified quadrant | CPT/HCPCS: 76642 ==

== ENCOUNTER 2025-01-30 08:52 | Outpatient (REF) | payer BC, MEDICAID, SELFPAY ==
--- OUTSIDE RECORDS SUMMARY | 2025-01-30 09:00 | XMS_ITS | Encounter Summary ---
Author Organization [employer] Address [address] [facility] [address] [place] [address] Care Team Providers Care Contract Specialist Name Role Phone LadiLisa burger ORQUIDEA Primary Care Provider [phone] Encounter Details Date Type Department Care Team ([facility] Contact Info) Description 2024 Orders Only [facility] [address] [place] [address] ProviderDenia MD Social History Tobacco Use Types [...] Procedure Name Priority Date/Time Associated Diagnosis Comments BI US BREAST LIMITED BILATERAL Routine 12/13/2024 11:00 AM EDT HM PAP/HPV Routine 06/10/2024 8:24 AM EDT documented in this encounter Results * BI US Breast Limited Bilateral (12/13/2024 11:00 AM EDT) Anatomical Region Laterality Modality Breast Bilateral Ultrasound 12/13/2024 11:0 0 AM EDT Narrative 12/13/2024 2:14 PM EDT ? [facility] [place] ? [address] [place] [address] ? Ultrasound Report ? Signed with Addenda ? Patient: Cruz Serraaresma,Malorie ?MR#: M ?? [id number] ? : 1990 ?Acct:[id number] ? Age/Sex: 34 / F ?ADM Date: 12/13/24 ? Loc: HO.MAMMO ? Attending Dr: Lisa Perez ANNUAL CAMPAIGN MANAGER ? Ordering Physician: Lisa Perez ANNUAL CAMPAIGN MANAGER ?? Date of Service: 12/13/24 ?? Procedure(s): US breast BI limited mamm only ?? Accession Number(s): [id number] ? cc: Lisa Perez ANNUAL CAMPAIGN MANAGER ?ADDENDUM ? ADDENDUM #1 ? EXAMINATION: ?? US DIAGNOSTIC ULTRASOUND BREAST, BILATERAL ? CLINICAL INFORMATION: ? Follow-up for bilateral masses versus complicated cysts right breast ? at 6:00 left breast at 8:00. Patient is breast-feeding.. ? COMPARISON: ?? Comparison is made with relevant prior imaging. ? TECHNIQUE: ?? Ultrasound of the breast is performed with real-time king scale imaging ?? and color Doppler. ? FINDINGS: ?? Targeted color Doppler ultrasound scanning in the right breast from ?? 4:00 to 8:00 demonstrates normal fibronodular breast tissue. The ?? previously seen masses no longer seen. ? Targeted color Doppler ultrasound scanning in the left breast at 6:00 ?? to 8:00 demonstrates a hypoechoic area which could recommend present a ?? normal patch of fibroglandular breast tissue versus the previously seen ?? solid mass versus complicated cyst. There is no internal vascular flow. ?? Follow-up is recommended for confirmation. ? Results are discussed with the patient at time of visit. ? IMPRESSION: ?? Right: Negative. ? Left: Patch of normal fibronodular breast tissue versus previously seen ?? area of solid mass versus complicated cyst which is more ill-defined ?? today. There is no internal vascular flow. Recommend follow-up in 12 ?? months for further confirmation. ? ASSESSMENT: ? BI-RADS 3: Probably Benign ? RECOMMENDATION: ?? Diagnostic mammography at time of next annual exam, due in 12 months. ? This patient's information was entered into a reminder system with a ?? target due date for their next mammogram. ? Electronically signed by: ??Ida Sarmientogabino DO ??01/19/2025 10:22 AM EDT ?? RP ? Addendum Dictated By: ?Ida Sarmientogabino, DO ? Addendum Signed By: ? <Electronically signed by Ida Craig, DO in OV> ? 01/19/25 1022 ?? Addendum Cosigned By: ? DD/ /08/1099 ? TD/TT: 12/13/2410/08/1149 ? EXAMINATION: ?? US DIAGNOSTIC ULTRASOUND BREAST, BILATERAL ? CLINICAL INFORMATION: ? Follow-up for bilateral masses versus complicated cysts likely at 6:00 ?? left at 8:00. Patient is breast-feeding.. ? COMPARISON: ?? Comparison is made with relevant prior imaging. ? TECHNIQUE: ?? Ultrasound of the breast is performed with real-time king scale imaging ?? and color Doppler. ? FINDINGS: ?? Targeted color Doppler ultrasound scanning in the right breast from 40 ?? 8:00 demonstrates normal fibronodular breast tissue. The previously ?? seen masses no longer seen. ? Targeted color Doppler ultrasound scanning in the left breast at 8:00 ?? demonstrates a hypoechoic area which could recommend present a normal ?? patch of fibroglandular breast tissue versus the previously seen solid ?? mass versus complicated cyst. There is no internal vascular flow. ?? Follow-up is recommended for confirmation. ? Results are discussed with the patient at time of visit. ? US/US breast BI limited mamm only ?? IMPRESSION: ?? Right: Negative. ? Left: Patch of normal fibronodular breast tissue versus previously seen ?? area of solid mass versus complicated cyst which is more ill-defined ?? today. There is no internal vascular flow. Recommend follow-up in 12 ?? months for further confirmation. ? ASSESSMENT: ? BI-RADS 3: Probably Benign ? RECOMMENDATION: ?? Diagnostic mammography at time of next annual exam, due in 12 months. ? This patient's information was entered into a reminder system with a ?? target due date for their next mammogram. ? Electronically signed by: ??Ida Craig DO ??12/13/2024 02:11 PM EDT ? Dictated By: ?Ida Craig DO ? Signed By: ?<Electronically signed by Ida Craig, DO in OV> ? 12/13/24 1411 ? DD/ 1100 ? TD/TT: 12/13/24 1150 ? Kosher Butcher: ? Procedure Note Marcus, Gay - 01/19/2025 [facility] [address] [place] [address] [place] [address] Ultrasound Report Signed with Ismael Patient: Dorene Mcgee#: M [id number] : 1990Acct:[id number] Age/Sex: 34 / FADM Date: 12/13/24 Loc: HO.MAMMO Attending Dr: Lisa HEARD Ordering Physician: Lisa Perez Date of Service: 12/13/24 Procedure(s): breast BI limited mamm only Accession Number(s): [id number] cc: Lisa Perez ADDENDUM ADDENDUM #1 EXAMINATION: US DIAGNOSTIC ULTRASOUND BREAST, BILATERAL CLINICAL INFORMATION: Follow-up for bilateral masses versus complicated cysts right breast at 6:00 left breast at 8:00. Patient is breast-feeding.. COMPARISON: Comparison is made with relevant prior imaging. TECHNIQUE: Ultrasound of the breast is performed with real-time king scale imaging and color Doppler. FINDINGS: Targeted color Doppler ultrasound scanning in the right breast from 4:00 to 8:00 demonstrates normal fibronodular breast tissue. The previously seen masses no longer seen. Targeted color Doppler ultrasound scanning in the left breast at 6:00 to 8:00 demonstrates a hypoechoic area which could recommend present a normal patch of fibroglandular breast tissue versus the previously seen solid mass versus complicated cyst. There is no internal vascular flow. Follow-up is recommended for confirmation. Results are discussed with the patient at time of visit. IMPRESSION: Right: Negative. Left: Patch of normal fibronodular breast tissue versus previously seen area of solid mass versus complicated cyst which is more ill-defined today. There is no internal vascular flow. Recommend follow-up in 12 months for further confirmation. ASSESSMENT: BI-RADS 3: Probably Benign RECOMMENDATION: Diagnostic mammography at time of next annual exam, due in 12 months. This patient's information was entered into a reminder system with a target due date for their next mammogram. Electronically signed by: Ida Craig DO 01/19/2025 10:22 AM EDT Addendum Dictated By: Ida Craig DO Addendum Signed By: <Electronically signed by DO Luis Enrique in OV> 01/19/25 1022 Addendum Cosigned By: DD/ /08/1099 TD/TT: 12/13/2410/08/1149 EXAMINATION: US DIAGNOSTIC ULTRASOUND BREAST, BILATERAL CLINICAL INFORMATION: Follow-up for bilateral masses versus complicated cysts likely at 6:00 left at 8:00. Patient is breast-feeding.. COMPARISON: Comparison is made with relevant prior imaging. TECHNIQUE: Ultrasound of the breast is performed with real-time king scale imaging and color Doppler. FINDINGS: Targeted color Doppler ultrasound scanning in the right breast from 40 8:00 demonstrates normal fibronodular breast tissue. The previously seen masses no longer seen. Targeted color Doppler ultrasound scanning in the left breast at 8:00 demonstrates a hypoechoic area which could recommend present a normal patch of fibroglandular breast tissue versus the previously seen solid mass versus complicated cyst. There is no internal vascular flow. Follow-up is recommended for confirmation. Results are discussed with the patient at time of visit. US/US breast BI limited mamm only IMPRESSION: Right: Negative. Left: Patch of normal fibronodular breast tissue versus previously seen area of solid mass versus complicated cyst which is more ill-defined today. There is no internal vascular flow. Recommend follow-up in 12 months for further confirmation. ASSESSMENT: BI-RADS 3: Probably Benign RECOMMENDATION: Diagnostic mammography at time of next annual exam, due in 12 months. This patient's information was entered into a reminder system with a target due date for their next mammogram. Electronically signed by: Ida Craig DO 12/13/2024 02:11 PM EDT Dictated By: Ida Craig DO Signed By: <Electronically signed by Ida Craig DO in OV> 12/13/24 1411 DD/ 1100 TD/TT: 12/13/24 1150 Kosher Butcher: Lisa HEARD IM US PROCEDURES Edited Resul t - Final * HM PAP/HPV (06/10/2024 8:24 AM EDT) us Historical Provider HEALTH MAINTENANCE Final Result documented in this encounter Visit Diagnoses Not on filedocumented in this encounter Additional Health Concerns Assessment Noted Time PHQ-9 Depression Total Score: 1 06/06/20 24 11:46 AM EDT documented as of this encounter Care Teams Contract Specialist Relationship Specialty Start Date End Date Lisa Perez FNP [address] [place] [address] PCP - General Family Medicine 05/13/22 documented as of this encounter
--- OUTSIDE RECORDS SUMMARY | 2025-01-30 09:01 | XMS_ITS | Clinical Summary ---
Author Organization [employer] Address [address] [facility] [address] [place] [address] Care Team Providers Care Editor Managing Director Name Role Phone Lisa Perez ORQUIDEA Primary Care Provider [phone] Allergies Active Allergy Reactions Criticality Noted Date Comments Lactose Other Low 04/24/2024 Other Reaction(s): Cramps Medications butalbital-acet aminophen-caffe ine 50-325-40 MG tablet Take 1 tablet by mouth every 4 (four) hours if needed for migraine. 4 Active Ferrous Sulfate (IRON PO) Take 1 tablet by mouth in the morning. 4 Active Ctxuvfpk-Zui-Sb -FA ( 1 + IRON PO) Take [...] Encounters Date Type Department Care Team Description 12/29/2024 Telephone [facility] [address] [place] [address] Lisa Perez FNP May recall 2024 Orders Only [facility] [address] [place] [address] Provider, MD Denia from Last 3 Months Immunizations Immunization Administration Dates Next Due Tdap 03/14/2024,01/27/2022 Family [...] Additional history exists Dental X-Ray: Bitewings 06/17/2024 06/16/20, 07/22/2021, 05/27/2017 Influenza Vaccine (#1) 2025 Postp oned from 05/15/2024 (Patient Refused) Depression Screening 06/06/2025 06/06/2024, 06/06/20 24 SDOH Screening 06/06/2025 06/06/2024 Tobacco Screening 06/06/2025 06/06/2024 COVID-19 Vaccine ( season) 2025 08/25/2021, 01/08/2021, 12/18/2020 Postponed from 05/15/2024 (Patient Refused) Diagnostic Breast Imaging 12/13/20252024, 05/24/2024, 09/01/2023, Additional history exists Mammogram 12/13/2025 12/13/2024, 05/15, 09/01/2023, Additional history exists Dental X-Ray: Full Mouth 06/17/2026 023, 09/24/2017, [...] patient's age to complete this topic Meningococcal B Vaccine Aged Out No l onger eligible based on patient's age to complete [...] HM PAP/HPV Routine 06/10/2024 8:24 AM EDT HM PAP/HPV Routine 10/09/2023 PROPHYLAXIS [...] Recently Relevant to Health Maintenance Results * BI US Breast Limited Bilateral (12/13/2024 11:00 AM EDT) Anatomical Region Laterality Modality Breast Bilateral Ultrasound 12/13/2024 11:0 0 AM EDT Narrative 12/13/2024 2:14 PM EDT ? [facility] [place] ? [address] ?[place] [address] ? Ultrasound Report ? Signed with Addenda ? Patient: Arroyo Cuaresma,Malorie ?MR#: M ?? [id number] ? : 1990 ?Acct:[id number] ? Age/Sex: 34 / F ?ADM Date: 04/01/25 ? Loc: HO.MAMMO ? Attending Dr: Lisa HEARD ? Ordering Physician: Lisa Perez ?? Date of Service: 12/13/24 ?? Procedure(s): US breast BI limited mamm only ?? Accession Number(s): [id number] ? cc: Lisa Perez ?ADDENDUM ? ADDENDUM #1 ? EXAMINATION: ?? [...] their next mammogram. ? Electronically signed by: ??dIa Craig DO ??01/19/2025 10:22 AM EDT ?? RP ? Addendum Dictated By: ?Ida Craig, DO ? Addendum Signed By: ? <Electronically [...] ? Signed By: ?<Electronically signed by Ida Craig DO in OV> ? 12/13/24 1411 ? DD/ 1100 ? TD/TT: 12/13/24 1150 ? Tape Keller Operator: ? Procedure Note Marcus, Image - 01/19/2025 [facility] [address] [place] [address] [address] [place], [place] [address] Ultrasound Report Signed with Addenda Patient: Gabriela McgeeMarek#: M [id number] : 1990Acct:[id number] Age/Sex: 34 / FADM Date: 12/13/24 Loc: HO.MAMMO Attending Dr: Lisa Perez WOUND/OSTOMY CLINICAL NURSE SPECIALIST Ordering Physician: Lisa Perez Date of Service: 12/13/24 Procedure(s): US breast BI limited mamm only Accession Number(s): [id number] cc: Lisa Perez ADDENDUM ADDENDUM #1 EXAMINATION: [...] Ida Craig DO 12/13/2024 02:11 PM EDT RP Dictated By: Ida Craig DO Signed By: <Electronically signed by Ida Craig DO in OV> 12/13/24 1411 DD/ 1100 TD/TT: 12/13/24 1150 Tape Keller Operator: Lisa HEARD IMG US PROCEDURES Edited Resul t - Final * HM PAP/HPV (06/10/2024 8:24 AM EDT) Only the most recent of2 resultswithin the time period is included. Historical Provider HEALTH MAINTENANCE Final Result * HEPATITIS C AB W/REFL TO HCV RNA, QN, PCR (01/16/2022 9:46 AM EDT) HEPATITIS C ANTIBODY NON-REACT KATIA NON-REACT KATIA [facility] INDEX 0.02 <1.00 [facility] Comment: ?? HCV antibody was non-reactive. There is no laboratory ?? evidence of HCV infection. ?? In most cases, no further action is required. However, if recent HCV exposure is suspected, a test for HCV RNA (test code 47884) is suggested. ?? For additional information please refer to http://[employer].Rhapso/faq/PPO17q5 (This link is being provided for informational/ educational purposes only.) ?? 01/16/2022 9:46 AM EDT Inez Mohrnunu [facility] HISTORICAL/NON ORDERABLE LABS Final Result Performing Organization Address [facility] Phone Number [facility] [place] [address], * HIV 1/2 ANTIGEN/ANTIBODY,FOURTH GENERATION W/RFL (01/16/2022 9:46 AM EDT) HIV-1/2 ANTIGEN AND ANTIBODIES, 4TH GENERATION W/ REFLEX NON-REACT KATIA NON-REACT KATIA [facility] Comment: HIV-1 antigen and HIV-1/HIV-2 [...] ? For additional information please refer to http://education.Rhapso/faq/SST137 (This link is being provided for informational/ educational purposes only.) ? The performance of this assay has not been clinically validated in patients less than 2 years old. ?? 01/16/2022 9:46 AM EDT Inez Gogo [facility] BLOOD ORDERABLES Final Res ult Performing Organization Address [facility] Phone Number [facility] [place] [address], from Last 3 Months or Most Recently Relevant to Health Maintenance Insurance [facility] Care Teams Editor Managing Director Relationship Specialty Start Date End Date Lisa Perez FNP [address] [place] [id number] PCP - General Family Medicine 05/13/22
--- OUTSIDE RECORDS SUMMARY | 2025-01-30 09:01 | XMS_ITS | Encounter Summary ---
Author Organization [employer] Address [address] [place] [address] [address] [place] [address] Care Team Providers Care Roll Sheeting Cutter Name Role Phone Lisa Perez Primary Care Provider [phone] Encounter Details Date Type Department Care Team (Latest Contact Info) Description 07/05/2019 Abstract [facility] CONVERSIONS Dental, Provider, DDS Social History [...] on filedocumented in this encounter Care Teams Roll Sheeting Cutter Relationship Specialty Start Date End Date Lisa Perez FNP [address] [place] [id number] PCP - General Family Medicine 05/13/22 documented as of this encounter
--- OUTSIDE RECORDS SUMMARY | 2025-01-30 09:01 | XMS_ITS | Encounter Summary ---
Author Organization [employer] Address [address] [facility] [address] [place] [address] Care Team Providers Care Home Health Clinical Liaison Name Role Phone Lisa Perez Primary Care Provider [phone] Encounter Details Date Type Department Care Team (Latest Contact Info) Description 07/22/2021 Abstract [facility] CONVERSIONS Dental, Provider, DDS Social History Tobacco [...] on filedocumented in this encounter Care Teams Home Health Clinical Liaison Relationship Specialty Start Date End Date Lisa Perez FNP [address] [place] [address] PCP - General Family Medicine 05/13/22 documented as of this encounter
[2025-01-30 11:06] LABS: MANUAL DIFF FLAG NO
[2025-01-30 11:17] LABS: Estimated Average Glucose 117 mg/dL; Hemoglobin A1C 125.6618 umol/L; Hemoglobin A1c % 5.7 % (<6.0); Total Hemoglobin (HGBA1C) 3207.3072 umol/L
[2025-01-30 11:24] LABS: Basophils Absolute Auto 0.1 X10*3/uL (0.0-0.2); Basophils Percent Auto 0.8 % (0-2); Eosinophils Absolute Auto 0.1 X10*3/uL (0.0-0.4); Eosinophils Percent Auto 1.3 % (0-4); Hematocrit 37.2 % (37.0-47.0); Imm Gran Abs Auto 0.02 X10*3/uL (0.00-0.03); Imm Gran Pct Auto 0.3 % (0.0-0.4); Lymphocytes Absolute Auto 1.8 X10*3/uL (1.2-4.9); Lymphocytes Percent Auto 29.1 % (20-40); Mean Corpuscular HGB Conc 32.3 g/dl (31.0-35.0); Mean Corpuscular Hemoglobin 27.8 pg (27.0-33.0); Mean Corpuscular Volume 86.1 fL (80.0-98.0); Mean Platelet Volume 10.6 fL (9.4-12.3); Monocytes Absolute Auto 0.5 X10*3/uL (0.1-1.2); Monocytes Percent Auto 8.2 % (2-11); Neutrophils Absolute Auto 3.7 x10*3/uL (2.0-8.3); Neutrophils Percent Auto 60.3 % (45-73); Platelet Count 336 X10*3/uL (160-400); Red Blood Count 4.32 X10*6/uL (4.20-5.50); Red Cell Distribution Width 12.9 % (11.0-16.0); White Blood Count 6.1 X10*3/uL (4.8-10.8)
[2025-01-30 11:58] LABS: HBc Num1 0.12 S/CO (0.00-0.79); HBsAGNum1 0.44 S/CO (0.00-0.99); HIV AB/AG Nonreactive (Nonreactive); HIV Num 1 0.07 S/CO (0.00-0.99); Hepatitis B Core Antibody Nonreactive (Nonreactive); Hepatitis B Surface Antigen Negative (Negative); ~Hepatitis B Surface Antibody NONREACTIVE (Nonreactive)
[2025-01-30 12:17] LABS: TSH reflex Free T4 3.01 uIU/mL (0.32-4.0); Vitamin D 25-OH Total 32.2 ng/mL (>30)
[2025-01-30 12:20] LABS: Anion Gap 10 (12-20)
[2025-01-30 12:25] LABS: Alanine Aminotransferase 28 U/L (0-31); Albumin Level 4.3 g/dL (3.5-5.0); Alkaline Phosphatase 109 U/L (39-117); Aspartate Amino Transferase 22 U/L (5-31); Bilirubin Total 0.4 mg/dL (0.0-1.0); Blood Urea Nitrogen 12 mg/dL (9-16); Calcium 9.4 mg/dL (8.4-10.2); Carbon Dioxide 27 mmol/L (22-29); Chloride 108 mmol/L (96-108); Cholesterol 209 mg/dL (<200); Estimated Glomerular Filt Rate > 60; Glucose Random 87 mg/dL (60-115); HDL Cholesterol 44 mg/dL (>40); LDL Cholesterol Calculated 148 mg/dL (<100); Potassium 3.9 mmol/L (3.3-5.1); Sodium 141 mmol/L (135-145); Total Protein 7.8 g/dL (6.5-8.0); Triglycerides 89 mg/dL (<150)
[2025-01-30 13:12] LABS: CT PCR NOT DETECTED (Not Detect.); NG PCR NOT DETECTED (Not Detect.)
[2025-02-01 10:19] LABS: RPR Rapid Plasma Reagin NON-REACTIVE (NON-REACTIVE)
[2025-02-01 18:27] LABS: HCV Log PCR <1.18 NOT DETECTED Log IU/mL (NOT DETECTED); HepC Viral Load <15 NOT DETECTED IU/mL (NOT DETECTED)
== END 2025-01-30 08:53 | disposition home or self-care (01) ==
LOC: HO.HHCL 08:52
PROVIDERS: Visit Provider Registered Nurse
DX: Z00.00 Encounter for general adult medical examination without abnormal findings (principal); Z13.1 Encounter for screening for diabetes mellitus; Z13.220 Encounter for screening for lipoid disorders; Z13.29 Encounter for screening for other suspected endocrine disorder; Z13.0 Encounter for screening for diseases of the blood and blood-forming organs and certain disorders involving the immune mechanism
CPT/HCPCS: 80053; 80061; 82306; 83036; 84443; 85025; 86592; 86704; 86706; 87340; 87389; 87491; 87522; 87591